=== PATIENT | male | born 1940 | race Caucasian/White ===

== ENCOUNTER → 2021-03-17 01:43 | Outpatient (CLI) | payer OTHER, SELFPAY ==
[2021-03-17 19:23] LABS: SARS-CoV-2 RNA PCR Negative
== END ==
PROVIDERS: PCP Family Medicine; Visit Provider Internal Medicine Gastroenterology
DX: Z01.812 Encounter for preprocedural laboratory examination (principal); Z20.822 Contact with and (suspected) exposure to COVID-19
CPT/HCPCS: C9803; U0003; U0005

== ENCOUNTER 2021-03-20 02:37 | Day surgery (SDC) | payer OTHER, SELFPAY ==
[2021-03-11 11:41] VITALS: BMI 30.9
[2021-03-20 08:23] VITALS: BP 98/66; PULSE 68; RESP 18; TEMP 36.6; O2SAT 95; BMI 32.3
[2021-03-20] MEDS: LACTATED RINGERS 1,000 ML 150 ML IV CONT (08:39)
--- NOTE | 2021-03-20 09:10 | PM.HPGS ---
History of Present Illness History of Present Illness Consent: Risks, benefits, and alternatives have been discussed and questions answered. Patient agrees to proceed with procedure. Chief complaint: dysphagia Narrative: Honorio Whitman is a 80 year old male with dysphagia, never had egd Review of Systems Constitutional: Constitutional: Denies headache(s) and Denies weakness Eyes: Eyes: Denies blurry vision ENT: Reports Normal hearing present, Denies headache(s) and Denies neck pain Cardiovascular: Cardiovascular: Denies chest pain and Denies dyspnea Respiratory: Respiratory: Denies dyspnea Gastrointestinal: Gastrointestinal: Reports no additional gastrointestinal complaints Genitourinary: Genitourinary: Denies dysuria Musculoskeletal: Musculoskeletal: Denies neck pain Integumentary/Breasts: Skin/Breast: Denies dry skin Neurologic: Reports Normal hearing present, Denies headache(s) and Denies weakness Psychiatric: Psychiatric: Denies anxiety Endocrine: Endocrine: Denies change in body appearance Hematologic/Lymphatic: Hematologic/Lymphatic: Denies easy bleeding Allergic/Immunologic: Allergic/Immunologic: Denies urticaria PMFSH Past Medical History Medical History (Updated 03/20/21 @ 09:10 by Paco Robles MD) Dysphagia Family History Family History (Updated 01/19/16 @ 12:45 by DOCTOR UNKNOWN) Grandparent Cerebrovascular accident Family history of pancreatic cancer Diabetes mellitus Sibling Family history of heart disease in male family member before age 55 Mother Patient's mother is Father Patient's father is Acute myocardial infarction Social History Social History Smoking packs per day: 1.5 Smoking cigarettes per day: 30.0 Years smoked: 40 Smoking pack-years: 60.00 Smoking status: Former smoker Smoking end date: 11/14/94 Alcohol intake: never Substance use: never Substance use type: does not use Living arrangements: with family Spiritual care concerns: No Meds Home Medications and Allergies Home Medications Medication Instructions Recorded Confirmed Type Probiotic 1 cap PO DAILY 03/11/21 03/11/21 History acetaminophen [Tylenol Extra 1,000 mg PO BID 03/11/21 03/11/21 History Strength] apixaban [Eliquis] 5 mg PO BID 03/11/21 03/20/21 History atorvastatin 40 mg PO HS 03/11/21 03/11/21 History cetirizine 10 mg PO DAILY PRN 03/11/21 03/11/21 History coenzyme Q10 [Co Q-10] 50 mg PO DAILY 03/11/21 03/11/21 History diphenhydramine HCl [Benadryl] 25 mg PO HS PRN 03/11/21 03/11/21 History furosemide 40 mg PO DAILY PRN 03/11/21 03/11/21 History levothyroxine 75 mcg PO DAILY 03/11/21 03/11/21 History metoprolol tartrate 12.5 mg PO BID 03/11/21 03/11/21 History xoenirkjbjnx-umev-ysujc acid 1 tablet PO HS 03/11/21 03/20/21 History [Certavite-Antioxidant] omega-3 fatty acids-vitamin E 1 cap PO DAILY 03/11/21 03/11/21 History [Fish Oil] potassium chloride 10 meq PO DAILY PRN 03/11/21 03/11/21 History sacubitril-valsartan [Entresto] 1 tablet PO BID 03/11/21 03/20/21 History ticagrelor [Brilinta] 60 mg PO BID 03/11/21 03/20/21 History Allergies Allergy/AdvReac Type Severity Reaction Status Date / Time Penicillins Allergy Severe Hives Verified 03/20/21 08:21 Vital Signs Vital Signs - 24 hr 03/20/21 08:23 Temperature 97.8 F Pulse Rate 68 Respiratory Rate 18 Blood Pressure 98/66 L Pulse Oximetry 95 Exam Const: General: comfortable and no acute distress HENMT: General nose exam: Normal nares present Eyes: General: appearance normal, both eyes and all related structures Neck: Neck: no JVD Resp: Auscultation: clear to auscultation bilaterally Cardio: Rate: regular rate Rhythm: regular rhythm GI: Inspection: non-distended GI Palp: Yes Soft to palpation Skin: General skin exam: normal color Neuro: General: gait normal Speech: normal speech Extrem: General: norm
--- NOTE | 2021-03-20 09:12 | WPDANESEPPF ---
Anes - Initial Pre Proc Eval Procedure: Operation Date: 03/20/21 09:30 Proposed Procedures p Esophagogastroduodenoscopy - Paco Robles MD Date/Time: 03/20/21 09:12 Surgeon: Paco Robles MD Pre Op Diagnosis: dysphagia Patient Data Age: 80 Gender: M Height: 5 ft 10 in Weight: 102.2 kg Last Vital Signs Temp 36.6 C 03/20/21 08:23 Pulse 68 03/20/21 08:23 Resp 18 03/20/21 08:23 BP 98/66 L 03/20/21 08:23 Pulse Ox 95 03/20/21 08:23 Allergies Allergy/AdvReac Type Severity Reaction Status Date / Time Penicillins Allergy Severe Hives Verified 03/20/21 08:21 Home Medications Medication Instructions Recorded Confirmed Type Probiotic 1 cap PO DAILY 03/11/21 03/11/21 History acetaminophen [Tylenol Extra 1,000 mg PO BID 03/11/21 03/11/21 History Strength] apixaban [Eliquis] 5 mg PO BID 03/11/21 03/20/21 History atorvastatin 40 mg PO HS 03/11/21 03/11/21 History cetirizine 10 mg PO DAILY PRN 03/11/21 03/11/21 History coenzyme Q10 [Co Q-10] 50 mg PO DAILY 03/11/21 03/11/21 History diphenhydramine HCl [Benadryl] 25 mg PO HS PRN 03/11/21 03/11/21 History furosemide 40 mg PO DAILY PRN 03/11/21 03/11/21 History levothyroxine 75 mcg PO DAILY 03/11/21 03/11/21 History metoprolol tartrate 12.5 mg PO BID 03/11/21 03/11/21 History xhklzzgfnigm-joqk-iocyq acid 1 tablet PO HS 03/11/21 03/20/21 History [Certavite-Antioxidant] omega-3 fatty acids-vitamin E 1 cap PO DAILY 03/11/21 03/11/21 History [Fish Oil] potassium chloride 10 meq PO DAILY PRN 03/11/21 03/11/21 History sacubitril-valsartan [Entresto] 1 tablet PO BID 03/11/21 03/20/21 History ticagrelor [Brilinta] 60 mg PO BID 03/11/21 03/20/21 History Patient hx anesthesia problems: none Family hx anesthesia problems: none PMFSH Past Medical History Medical History CAD (coronary artery disease) CHF (congestive heart failure) COPD (chronic obstructive pulmonary disease) Dysphagia GERD (gastroesophageal reflux disease) Hyperlipidemia Hypertension NATANAEL (obstructive sleep apnea) Pacemaker Surgical History Surgical History Stented coronary artery Family History Family History Grandparent Cerebrovascular accident Family history of pancreatic cancer Diabetes mellitus Sibling Family history of heart disease in male family member before age 55 Mother Patient's mother is Father Patient's father is Acute myocardial infarction Social History Social History Smoking packs per day: 1.5 Smoking cigarettes per day: 30.0 Years smoked: 40 Smoking pack-years: 60.00 Smoking status: Former smoker Smoking end date: 11/14/94 Alcohol intake: never Substance use: never Substance use type: does not use Living arrangements: with family Spiritual care concerns: No Anes - Eval Final PreProcedure Day of Procedure 03/20/21 09:12 Patient weight: obese Heart: regular rate and rhythm Lungs: decreased breath sounds Airway: Mallampati scale class II Neurological: alert and oriented Last oral intake: >/= 8 hours ASA classification: IV Emergent: no Anesthetic plan: proceed Anesthesia type and monitoring: general GIVS and standard monitoring Informed Consent: The patient's anesthetic plan and its attendant risks and benefits were discussed with the patient/family/POA. Questions were solicited and answers provided to the satisfaction of the patient/family/POA.
[2021-03-20] MEDS: BENZOCAINE (*SP) 60 ML SPRAY CAN (HURRICAINE) 1 SPRAY MUCOUS MEM (09:16)
[2021-03-20 09:31] VITALS: BP 84/50; PULSE 68; RESP 22; O2SAT 95
[2021-03-20 09:41] VITALS: BP 76/43; PULSE 69; RESP 16; O2SAT 95
[2021-03-20 09:51] VITALS: BP 93/54; PULSE 66; RESP 16; O2SAT 93
== END 2021-03-20 10:00 | disposition home or self-care (01) ==
PROVIDERS: PCP Family Medicine; Visit Provider Internal Medicine Gastroenterology
PROC: 0DJ08ZZ Inspection of Upper Intestinal Tract, Via Natural or Artificial Opening Endoscopic (ICD-10-PCS; CPT 43235; principal; 2021-03-20 09:30)
DX: R13.19 Other dysphagia (principal); K21.00 Gastro-esophageal reflux disease with esophagitis, without bleeding; K29.50 Unspecified chronic gastritis without bleeding; Z79.01 Long term (current) use of anticoagulants; I25.10 Atherosclerotic heart disease of native coronary artery without angina pectoris; I11.0 Hypertensive heart disease with heart failure; J44.9 Chronic obstructive pulmonary disease, unspecified; E78.5 Hyperlipidemia, unspecified; G47.33 Obstructive sleep apnea (adult) (pediatric); Z87.891 Personal history of nicotine dependence; E66.9 Obesity, unspecified; Z68.32 Body mass index [BMI] 32.0-32.9, adult
CPT/HCPCS: 43239; 43248; 88305; C9803; J2704; J7120; U0003; U0005

== ENCOUNTER 2021-08-19 02:58 | Day surgery (SDC) | payer OTHER, SELFPAY ==
[2021-08-07 11:11] VITALS: BMI 29.7
--- NOTE | 2021-08-18 14:05 | WPDANESEPPF ---
Anes - Initial Pre Proc Eval Procedure: Operation Date: 08/19/21 11:30 Proposed Procedures p Screening Colonoscopy - Paco Robles MD Date/Time: 08/18/21 14:05 Surgeon: Paco Robles MD Pre Op Diagnosis: neoplasm screening Patient Data Age: 81 Gender: M Height: 1.77 m Weight: 92.7 kg Allergies Allergy/AdvReac Type Severity Reaction Status Date / Time Penicillins Allergy Severe Hives Verified 08/19/21 10:41 Home Medications Medication Instructions Recorded Confirmed Type Probiotic 1 cap PO DAILY 03/11/21 08/07/21 History acetaminophen [Tylenol Extra 1,000 mg PO BID 03/11/21 08/07/21 History Strength] apixaban [Eliquis] 5 mg PO BID 03/11/21 08/07/21 History atorvastatin 40 mg PO HS 03/11/21 08/07/21 History cetirizine 10 mg PO DAILY PRN 03/11/21 08/07/21 History coenzyme Q10 [Co Q-10] 50 mg PO DAILY 03/11/21 08/07/21 History diphenhydramine HCl [Benadryl] 25 mg PO HS 03/11/21 08/07/21 History furosemide 40 mg PO DAILY PRN 03/11/21 08/07/21 History levothyroxine 75 mcg PO DAILY 03/11/21 08/07/21 History metoprolol tartrate 12.5 mg PO BID 03/11/21 08/07/21 History yuhytgkcoayx-dxrq-qfzza acid 1 tablet PO HS 03/11/21 08/07/21 History [Certavite-Antioxidant] omega-3 fatty acids-vitamin E 1 cap PO DAILY 03/11/21 08/07/21 History [Fish Oil] potassium chloride 10 meq PO DAILY PRN 03/11/21 08/07/21 History sacubitril-valsartan [Entresto] 1 tablet PO BID 03/11/21 08/07/21 History ticagrelor [Brilinta] 60 mg PO BID 03/11/21 08/07/21 History omeprazole 40 mg capsule,delayed 40 mg PO DAILY #30 cap 03/20/21 08/07/21 Rx release Patient hx anesthesia problems: none Family hx anesthesia problems: none Results Review: All pre-operative results and documents have been reviewed as part of the pre-operative evaluation. [facility] Past Medical History Medical History (Updated 08/18/21 @ 14:07 by Brannon Sam DO) Atrial fibrillation CAD (coronary artery disease) CHF (congestive heart failure) COPD (chronic obstructive pulmonary disease) Dysphagia GERD (gastroesophageal reflux disease) Hyperlipidemia Hypertension ICD (implantable cardioverter-defibrillator) in place NATANAEL (obstructive sleep apnea) Bipap - O2 3 L/min Pacemaker Surgical History Surgical History Stented coronary artery Family History Family History Grandparent Cerebrovascular accident Family history of pancreatic cancer Diabetes mellitus Sibling Family history of heart disease in male family member before age 55 Mother Patient's mother is Father Patient's father is Acute myocardial infarction Social History Social History Smoking packs per day: 1 Smoking cigarettes per day: 20.0 Years smoked: 40 Smoking pack-years: 40.00 Smoking status: Former smoker Tobacco type: cigarettes Smoking end date: 11/14/94 Alcohol intake: never Substance use: never Substance use type: does not use Living arrangements: with family Spiritual care concerns: No Anes - Eval Final PreProcedure Day of Procedure 08/18/21 14:05 Patient weight: overweight Heart: regular rate and rhythm Lungs: clear to auscultation and normal air movement Airway: Mallampati scale class II Neurological: alert and oriented Last oral intake: >/= 8 hours ASA classification: IV Emergent: no Anesthetic plan: proceed Anesthesia type and monitoring: general GIVS and standard monitoring Results Review: All pre-operative results and documents have been reviewed as part of the pre-operative evaluation. Informed Consent: The patient's anesthetic plan and its attendant risks and benefits were discussed with the patient/family/POA. Questions were solicited and answers provided to the satisfaction of the patient/
[2021-08-19 10:43] VITALS: BP 110/61; PULSE 79; RESP 18; TEMP 36.3; O2SAT 95
[2021-08-19] MEDS: LACTATED RINGERS 1,000 ML 150 ML IV CONT (11:00)
--- NOTE | 2021-08-19 11:01 | PM.HPGS ---
History of Present Illness History of Present Illness Consent: Risks, benefits, and alternatives have been discussed and questions answered. Patient agrees to proceed with procedure. Chief complaint: neoplasm screening Narrative: Honorio Whitman is a 81 year old male with colon polyp about 3 years ago, since October with intermittent diarrhea. Review of Systems Constitutional: Constitutional: Denies headache(s) and Denies weakness Eyes: Eyes: Denies blurry vision ENT: Reports Normal hearing present, Denies headache(s) and Denies neck pain Cardiovascular: Cardiovascular: Denies chest pain and Denies dyspnea Respiratory: Respiratory: Denies dyspnea Gastrointestinal: Gastrointestinal: Reports no additional gastrointestinal complaints Genitourinary: Genitourinary: Denies dysuria Musculoskeletal: Musculoskeletal: Denies neck pain Integumentary/Breasts: Skin/Breast: Denies dry skin Neurologic: Reports Normal hearing present, Denies headache(s) and Denies weakness Psychiatric: Psychiatric: Denies anxiety Endocrine: Endocrine: Denies change in body appearance Hematologic/Lymphatic: Hematologic/Lymphatic: Denies easy bleeding Allergic/Immunologic: Allergic/Immunologic: Denies urticaria PMFSH Past Medical History Medical History (Updated 08/19/21 @ 11:02 by Paco Robles MD) Atrial fibrillation CAD (coronary artery disease) CHF (congestive heart failure) Colon cancer screening COPD (chronic obstructive pulmonary disease) Dysphagia GERD (gastroesophageal reflux disease) Hyperlipidemia Hypertension ICD (implantable cardioverter-defibrillator) in place NATANAEL (obstructive sleep apnea) Bipap - O2 3 L/min Pacemaker Surgical History Surgical History Stented coronary artery Family History Family History Grandparent Cerebrovascular accident Family history of pancreatic cancer Diabetes mellitus Sibling Family history of heart disease in male family member before age 55 Mother Patient's mother is Father Patient's father is Acute myocardial infarction Social History Social History Smoking packs per day: 1 Smoking cigarettes per day: 20.0 Years smoked: 40 Smoking pack-years: 40.00 Smoking status: Former smoker Tobacco type: cigarettes Smoking end date: 11/14/94 Alcohol intake: never Substance use: never Substance use type: does not use Living arrangements: with family Spiritual care concerns: No Meds Home Medications and Allergies Home Medications Medication Instructions Recorded Confirmed Type Probiotic 1 cap PO DAILY 03/11/21 08/07/21 History acetaminophen [Tylenol Extra 1,000 mg PO BID 03/11/21 08/07/21 History Strength] apixaban [Eliquis] 5 mg PO BID 03/11/21 08/07/21 History atorvastatin 40 mg PO HS 03/11/21 08/07/21 History cetirizine 10 mg PO DAILY PRN 03/11/21 08/07/21 History coenzyme Q10 [Co Q-10] 50 mg PO DAILY 03/11/21 08/07/21 History diphenhydramine HCl [Benadryl] 25 mg PO HS 03/11/21 08/07/21 History furosemide 40 mg PO DAILY PRN 03/11/21 08/07/21 History levothyroxine 75 mcg PO DAILY 03/11/21 08/07/21 History metoprolol tartrate 12.5 mg PO BID 03/11/21 08/07/21 History twuwuhokmfwx-tsbu-ysxxh acid 1 tablet PO HS 03/11/21 08/07/21 History [Certavite-Antioxidant] omega-3 fatty acids-vitamin E 1 cap PO DAILY 03/11/21 08/07/21 History [Fish Oil] potassium chloride 10 meq PO DAILY PRN 03/11/21 08/07/21 History sacubitril-valsartan [Entresto] 1 tablet PO BID 03/11/21 08/07/21 History ticagrelor [Brilinta] 60 mg PO BID 03/11/21 08/07/21 History omeprazole 40 mg capsule,delayed 40 mg PO DAILY #30 cap 03/20/21 08/07/21 Rx release Allergies Allergy/AdvReac Type Severity Reaction Status Date / Time Penicillins Allergy Sev
[2021-08-19 11:26] VITALS: BP 93/51; PULSE 70; RESP 29; O2SAT 94
[2021-08-19 11:36] VITALS: BP 90/55; PULSE 74; RESP 27; O2SAT 92
[2021-08-19 11:46] VITALS: BP 97/61; PULSE 67; RESP 30; O2SAT 94
== END 2021-08-19 12:07 | disposition home or self-care (01) ==
PROVIDERS: PCP Family Medicine; Visit Provider Internal Medicine Gastroenterology
PROC: 0DJD8ZZ Inspection of Lower Intestinal Tract, Via Natural or Artificial Opening Endoscopic (ICD-10-PCS; CPT 45378; principal; 2021-08-19 11:30)
DX: Z12.11 Encounter for screening for malignant neoplasm of colon (principal); R19.7 Diarrhea, unspecified; K57.30 Diverticulosis of large intestine without perforation or abscess without bleeding; K64.8 Other hemorrhoids; Z86.010 Personal history of colon polyps; I11.0 Hypertensive heart disease with heart failure; I50.9 Heart failure, unspecified; I48.91 Unspecified atrial fibrillation; I25.10 Atherosclerotic heart disease of native coronary artery without angina pectoris; J44.9 Chronic obstructive pulmonary disease, unspecified; E78.5 Hyperlipidemia, unspecified; K21.9 Gastro-esophageal reflux disease without esophagitis; G47.33 Obstructive sleep apnea (adult) (pediatric); Z95.5 Presence of coronary angioplasty implant and graft; Z95.810 Presence of automatic (implantable) cardiac defibrillator; Z87.891 Personal history of nicotine dependence; Z79.01 Long term (current) use of anticoagulants
CPT/HCPCS: 45380; 88305; J2001; J2704; J7120